=== PATIENT | male | born 1985 | race African-American/Black ===

== ENCOUNTER 2016-11-26 20:52 | Emergency (ER) | payer MEDICAID ==
[~2016-11-26] VITALS: Ht 185.4 cm; Wt 117.9 kg
[~2016-11-26 20:52] MED LIST: AMOX500C2 PO; CLIN300C3 PO; HYDR-757 PO; MPR22T TOP; NAPR-243 PO; ONDA4TAB11 PO; PRD20T PO; SULF-222 PO; SULF1TAB35 PO; SULF1TAB38 PO; TAMS0.4C98 PO; TRM50T PO
[2016-11-26] MEDS ORDERED: RX-CYCLOBENZAPRINE 10 MG (FLEXERIL) TAB PPK#3 PO STA (22:30)
[2016-11-26] MEDS ORDERED: RX-NAPROXEN (NAPROSYN) 250 MG TAB PPK#4 PO STA (22:30)
[2016-11-26] MEDS ORDERED: NAPR500T3 PO (22:33)
[2016-11-26] MEDS ORDERED: CYCL10TA9 PO (22:33)
--- NOTE | 2016-11-26 22:33 | ED Upper Extremity ---
General Chief Complaint: Upper Extremity Stated Complaint: R UPPER ARM PAIN Nursing Triage Note: pt reports his right arm was sore after work today. he put icy hot on it et took a nap. he woke up with worsening pain et numbness/tingling in fingers. 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 Nursing Sepsis Screen: No Definite Risk Source: patient History of Present Illness Time seen by provider: 21:50 Initial Comments PT ARRIVES VIA POV STATES HE HAS BEEN WORKING AT [employer] TH[employer]OUGH [employer] FOR THE LAST 3 WEEKS--WORKS 6 AM TO 4:30 PM. CONSTANT REPETITIVE MOVEMENTS OF FLEXION AND EXTENSION OF RIGHT ARM, LIFTS 10- 15 LBS AT A TIME AND NEVER LIFTS HIGHER THAN HIS HEAD. NO DIRECT TRAUMA THIS AM AT WORK, HE BEGAN TO HAVE PAIN IN RIGHT UPPER ARM WENT HOME AND WENT TO SLEEP, AND WHEN HE WOKE UP THIS EVENING HE HAD SEVERE PAIN IN RIGHT UPPER ARM--STARTED IN ELBOW AREA, THEN HIS WHOLE ARM STARTED HURTING AND NOW IT IS MORE AROUND RIGHT SHOULDER AND IN ELBOW C/O TINGLING TO FINGERTIPS, AND FINGERTIPS TO MIDDLE 2 FINGERS FEEL NUMB. HAS NOT TAKEN ANYTHING FOR PAIN, BUT DID PUT ICY HOT ON IT WITHOUT RELIEF PT IS RIGHT HANDED NO PRIOR PROBLEMS WITH RIGHT ARM. PCP: [facility] Allergies and Home Medications Allergies Coded Allergies: No Known Drug Allergies (Unverified , 01/05/11) Home Medications Cyclobenzaprine HCl 10 Mg Tablet, 10 MG PO Q8H, #15 Prescribed by: JAI WHITMAN on 11/26/16 2233 Hydrocodone/Acetaminophen 1 Each Tablet, 1 EACH PO Q6H PRN for PAIN, #14 Ref 0 Prescribed by: BLOSSOM PERRY on 07/26/16 1404 Naproxen 500 Mg Tablet, 500 MG PO BID, #20 Prescribed by: JAI WHITMAN on 11/26/16 2233 Ondansetron 4 Mg Tab.rapdis, 4 MG PO Q6H PRN for NAUSEA/VOMITING, #8 Ref 0 Prescribed by: BLOSSOM PERRY on 07/26/16 1436 Sulfamethoxazole/Trimethoprim 1 Each Tablet, 1 EACH PO BID, #10 Ref 0 Prescribed by: BLOSSOM PERRY on 07/26/16 1435 Tamsulosin HCl 0.4 Mg Cap, 0.4 MG PO DAILY, #14 Ref 0 Prescribed by: BLOSSOM PERRY on 07/26/16 1436 Constitutional: no symptoms reported Respiratory: no symptoms reported Cardiovascular: no symptoms reported Gastrointestinal: no symptoms reported Musculoskeletal: see HPI Skin: no symptoms reported Psychiatric/Neurological: See HPI Past Pksvfmo-Koyced-Ygelqf Hx Patient Social History Alcohol Use: Denies Use Recreational Drug Use: No Smoking Status: Never a Smoker Recent Foreign Travel: No Contact w/Someone Who Travel: No Recent Infectious Disease Expo: No Recent Hopitalizations: No Immunizations Up To Date Tetanus Booster (TDap): More than 5yrs Seasonal Allergies Seasonal Allergies: No Surgeries HX Surgeries: No Respiratory Hx Respiratory Disorders: No Cardiovascular Hx Cardiac Disorders: No Neurological Hx Neurological Disorders: No Reproductive System Hx Reproductive Disorders: No Genitourinary Hx Genitourinary Disorders: No Gastrointestinal Hx Gastrointestinal Disorders: No Musculoskeletal Hx Musculoskeletal Disorders: Yes Musculoskeletal Disorders: Scoliosis Endocrine Hx Endocrine Disorders: No HEENT HX ENT Disorders: No Cancer Hx Cancer: No Psychosocial Hx Psychiatric Problems: No Integumentary HX Skin/Integumentary Disorder: No Blood Transfusions Hx Blood Disorders: No Family Medical History Significant Family History: Heart Disease, Hypertension Physical Exam Vital Signs Vital Sign - Last 12Hours 11/26/16 21:18 Temp 98.2 Pulse 96 Resp 14 B/P (MAP) 146/79 Pulse Ox 96 Capillary Refill : Less Than 3 Seconds General Appearance: WD/WN, no apparent distress Neck: non-tender, full range of motion, supple, normal inspection Cardiovascular: normal peripheral pulses, regular rate, rhythm, no murmur Respiratory: chest non-tender, normal breath sounds, no respiratory distress, no accessory muscle use Back: normal inspection, no CVA tenderness, no vertebral tenderness Shoulder: No asymmetry, No bone tenderness, No deformity, No ecchymosis, limited ROM (DUE TO PAIN ), pain, soft tissue tenderness (TENDERNESS TO ANTERIOR ASPECT OF RIGHT SHOULDER/DELTOID AREA AND MID BICEPS AREA. ) Elbow/Forearm: Right, limited ROM (DUE TO PAIN ), soft tissue tenderness Wrist: Yes normal inspection Hand: normal inspection Neurologic/Tendon: normal sensation, normal motor functions, normal tendon functions Neurologic/Psychiatric: jet blade polisher II-XII nml as tested, no motor/sensory deficits, alert, normal mood/affect, oriented x 3 Skin: normal color, warm/dry, No rash Splinting and Joint Reduction : Arm Sling: [place] Progress/Results/Core Measures Results/Orders My Orders Orders - JAI WHITMAN DO Humerus, Right, 2 Views (11/26/16 21:53) Sling (11/26/16 22:30) Rx-Cyclobenzaprine Tablet (Rx-Flexeril T (11/26/16 22:30) Rx-Naproxen (Rx-Naprosyn) (11/26/16 22:30) Vital Signs/I&O Vital Sign - Last 12Hours 11/26/16 11/26/16 21:18 22:45 Temp 98.2 Pulse 96 0 Resp 14 0 B/P (MAP) 146/79 Pulse Ox 96 0 Blood Pressure Mean: 101 Diagnostic Imaging Comments XRAYS RIGHT HUMERUS--NO ACUTE PROCESS, PENDING RADIOLOGIST REVIEW Reviewed: Reviewed by Me Departure Impression Impression: Primary Impression: Muscle strain of right upper arm Additional Impression: OVERUSE INJURY OF RIGHT ARM Disposition: HOME, SELF-CARE Condition: Stable Departure-Patient Inst. Referrals: [facility] (PCP/Family) Primary Care Physician Patient Instructions: How to Use a Shoulder Sling, Muscle Strain (DC) Add. Discharge Instructions: ALTERNATE ICE AND HEAT TO SORE AREAS AT 20 MINUTE INTERVALS WEAR SLING AT ALL TIMES FOLLOW UP WITH OCCUPATIONAL HEALTH/ WORKMAN'[employer] COMP DR TOMORROW FOR FURTHER CARE All discharge instructions reviewed with patient and/or family. Voiced understanding. Scripts Cyclobenzaprine HCl (Cyclobenzaprine HCl) 10 Mg Tablet 10 MG PO Q8H, #15 TAB Prov: JAI WHITMAN DO 11/26/16 Naproxen (Naproxen) 500 Mg Tablet 500 MG PO BID, #20 TAB Prov: JAI WHITMAN DO 11/26/16 JAI WHITMAN DO Nov 26, 2016 22:33
[2016-11-26 22:45] VITALS: BP 0/0
--- NOTE | 2016-11-27 07:21 | Diagnostic Imaging Report ---
INDICATION: Pain FINDINGS: There is no fracture or dislocation. No opaque foreign body. IMPRESSION: Negative Dictated by: Dictated on workstation # [id number]
--- OUTSIDE RECORDS SUMMARY | 2016-12-21 05:20 | XMS REPORT | Continuity of Care Document ---
Author Author [facility] Address Unknown Phone Unavailable Allergies Active Description Code Type Severity Reaction Onset Reported/Identified Relationship to Patient Clinical Status Yes No Known Drug Allergies [id number] Drug Allergy Unknown N/ A 01/05/2011 Medications Problems Date Dx Coded Attending Type Code Diagnosis Diagnosed By 08/15/2009 599.0 URINARY TRACT INFECTION 08/15/2009 LEIGH TIM APRN 599.0 URINARY TRACT INFECTION 09/16/2012 786.59 ATYPICAL CHEST PAIN 09/16/2012 LEIGH TIM APRN 786.59 ATYPICAL CHEST PAIN 01/23/2013 YOSVANY ORDOÑEZ Ot 923.11 CONTUSION OF ELBOW 01/23/2013 YOSVANY ORDOÑEZ Ot 959.3 ELB/FOREARM/WRST INJ NOS 01/23/2013 YOSVANY ORDOÑEZ Ot E000.8 OTHER EXTERNAL CAUSE STATUS 01/23/2013 YOSVANY ORDOÑEZ Ot E007.3 ACTIVITIES INVOLVING BASEBALL 01/23/2013 YOSVANY ORDOÑEZ Ot E917.0 STRUCK IN SPORTS 02/05/2014 ZACK ROGERS, CIERA Jimenez Ot 401.9 02/05/2014 ZACK ROGERS, CIERA T Ot 682.6 02/05/2014 ZACK ROGERS, CIERA T Ot 916.5 02/05/2014 ZACK ROGERS, CIERA T Ot E906.4 02/07/2014 JAI WHITMAN DO Ot 682.6 10/04/2014 LEIGH TIM APRN 719.42 PAIN IN JOINT INVOLVING UPPER ARM 10/04/2014 LEIGH TIM APRN 780.4 DIZZINESS AND GIDDINESS 10/04/2014 LEIGH TIM APRN V70.0 ROUTINE GENERAL MEDICAL EXAMINATION AT A HEALTH CARE FACILITY 03/01/2015 NEHEMIAS ROGERS, SUMIT Trujillo Ot 785.1 PALPITATIONS 03/01/2015 SUMIT DEL CID MD Ot 786.50 CHEST PAIN NOS 03/01/2015 NEHEMIAS ROGERS, SUMIT Trujillo Ot V58.66 LONG-TERM (CURRENT) USE OF ASPIRIN 03/22/2015 JENNY GUZMANC, ALI FACP CCDS Ot 278.00 03/22/2015 JENNY GUZMANC, ALI FACP CCDS Ot 785.1 03/22/2015 JENNY ROGERS FACC, ALI FACP CCDS Ot 786.50 03/22/2015 JENNY GUZMANC, ALI FACP CCDS Ot 790.21 03/22/2015 JENNY ROGERS FACC, ALI FACP CCDS Ot 794.31 03/22/2015 JENNY ROGERS FACC, ALI FACP CCDS Ot 278.00 03/22/2015 JENNY GUZMANC, ALI FACP CCDS Ot 785.1 03/22/2015 JENNY ROGERS FACC, ALI FACP CCDS Ot 786.50 03/22/2015 JENNY GUZMANC, ALI FACP CCDS Ot 790.21 03/22/2015 JENNY GUZMAN, ALI FACP CCDS Ot 794.31 03/22/2015 [facility], [facility]I FACP CCDS Ot 278.00 03/22/2015 JENNY GUZMAN, ALI FACP CCDS Ot 785.1 03/22/2015 JENNY GUZMAN, ALI FACP CCDS Ot 786.50 03/22/2015 JENNY GUZMANC, ALI FACP CCDS Ot 790.21 03/22/2015 JENNY GUZMANC, ALI FACP CCDS Ot 794.31 03/29/2015 [employer] Ot 276.8 07/26/2016 JENNY ROGERS FACC, ALI FACP CCDS Ot 278.00 OBESITY, NOS 07/26/2016 JENNY GUZMANC, ALI FACP CCDS Ot 785.1 PALPITATIONS 07/26/2016 JENNY GUZMANC, ALI FACP CCDS Ot 786.50 CHEST PAIN NOS 07/26/2016 JENNY GUZMANC, ALI FACP CCDS Ot 790.21 IMPAIRED FASTING GLUCOSE 07/26/2016 JENNY ROGERS FACC, ALI FACP CCDS Ot 794.31 ABNORM ELECTROCARDIOGRAM 07/26/2016 JENNY GUZMANC, ALI FACP CCDS Ot 278.00 OBESITY, NOS 07/26/2016 JENNY ROGERS FACC, ALI FACP CCDS Ot 785.1 PALPITATIONS 07/26/2016 JENNY MD FACC, ALI FACP CCDS Ot 786.50 CHEST PAIN NOS 07/26/2016 JENNY MD FACC, ALI FACP CCDS Ot 790.21 IMPAIRED FASTING GLUCOSE 07/26/2016 JENNY MD FACC, ALI FACP CCDS Ot 794.31 ABNORM ELECTROCARDIOGRAM 07/26/2016 JENNY MD FACC, ALI FACP CCDS Ot 278.00 OBESITY, NOS 07/26/2016 JENNY MD FACC, ALI FACP CCDS Ot 785.1 PALPITATIONS 07/26/2016 JENNY MD FACC, ALI FACP CCDS Ot 786.50 CHEST PAIN NOS 07/26/2016 JENNY MD FACC, ALI FACP CCDS Ot 790.21 IMPAIRED FASTING GLUCOSE 07/26/2016 JENNY ROGERS FACC, ALI FACP CCDS Ot 794.31 ABNORM ELECTROCARDIOGRAM 07/26/2016 [employer] Ot 276.8 HYPOPOTASSEMIA 07/29/2016 BLOSSOM PERRY MD Ot N20.1 CALCULUS OF URETER 07/29/2016 BLOSSOM PERRY MD Ot R10.31 RIGHT LOWER QUADRANT PAIN 07/29/2016 BLOSSOM PERRY MD Ot R11.2 NAUSEA WITH VOMITING, UNSPECIFIED 07/29/2016 BLOSSOM PERRY MD Ot R19.7 DIARRHEA, UNSPECIFIED 07/29/2016 BLOSSOM PERRY MD Ot R50.9 FEVER, UNSPECIFIED 08/07/2016 BLOSSOM PERRY MD Ot N20.1 CALCULUS OF URETER 08/07/2016 BLOSSOM PERRY MD Ot R10.31 RIGHT LOWER QUADRANT PAIN 08/07/2016 BLOSSOM PERRY MD Ot R11.2 NAUSEA WITH VOMITING, UNSPECIFIED 08/07/2016 BLOSSOM PERRY MD Ot R19.7 DIARRHEA, UNSPECIFIED 08/07/2016 BLOSSOM PERRY MD Ot R50.9 FEVER, UNSPECIFIED 11/26/2016 JAI WHITMAN DO, Ot S46.911A STRAIN UNSP MUSC/FASC/TEND AT SHLDR/UP A 11/26/2016 JAI WHITMAN DO, Ot S49.91XA UNSP INJURY OF RIGHT SHOULDER AND UPPER 11/26/2016 JAI WHITMAN DO Ot X50.3XXA OVEREXERTION FROM REPETITIVE MOVEMENTS, 11/26/2016 JAI WHITMAN DO Ot Y92.[address] 11/26/2016 JAI WHITMAN DO Ot Y99.0 CIVILIAN ACTIVITY DONE FOR INCOME OR PAY 11/27/2016 JAI WHITMAN DO Ot S46.911A STRAIN UNSP MUSC/FASC/TEND AT SHLDR/UP A 11/27/2016 JAI WHITMAN DO Ot S49.91XA UNSP INJURY OF RIGHT SHOULDER AND UPPER 11/27/2016 JAI WHITMAN DO Ot X50.3XXA OVEREXERTION FROM REPETITIVE MOVEMENTS, 11/27/2016 JAI WHITMAN DO Ot Y92.[address] 11/27/2016 J CARLOS JAI LLOYD Ot Y99.0 CIVILIAN ACTIVITY DONE FOR INCOME OR PAY Procedures Code [place] [address] XRAY CHEST 2 VIEW 09/16/2012 91085 ROUTINE VENIPUNCTURE 09/16/2012 42322 CBC 09/16/2012 88600 CMP 09/16/2012 93674 MAGNESIUM 2012 [id number] GFR CALC (RESULT ONLY) 09/16/2012 16361 D-DIMER 2012 26741 ROUTINE VENIPUNCTURE 10/11/2014 55240 CBC 10/11/2014 9023904 GFR CALC (RESULT ONLY) 10/11/2014 55432 CMP 10/11/2014 39161 LIPID PANEL 10/11 32566 URIC ACID 2014 36437 TSH 10/11/2014 26070 TESTOSTERONE TOTAL MALES 10/11/2014 Results Test Result Range Complete blood count (CBC) with automated white blood cell (WBC) differential - 07/26/16 12:15 Blood leukocytes automated count (number/volume) 6.7 10*3/ uL 4.3-11.0 Blood erythrocytes automated count (number/volume) 4.97 10*6 /uL 4.35-5.85 Venous blood hemoglobin measurement (mass/volume) 15.0 g/dL 13.3-17.7 Blood hematocrit (volume fraction) 42 % 40-54 Automated erythrocyte mean corpuscular volume 85 [foz_us] 80-99 Automated erythrocyte mean corpuscular hemoglobin (mass per erythrocyte) 30 pg 25-34 Automated erythrocyte mean corpuscular hemoglobin concentration measurement ( mass/volume) 36 g/dL 32-36 Automated erythrocyte distribution width ratio 12.2 % 10.0-14.5 Automated blood platelet count (count/volume) 320 10*3/uL 130-400 Automated blood platelet mean volume measurement 10.7 [foz_ us] 7.4-10.4 Automated blood neutrophils/100 leukocytes 67 % 42-75 Automated blood lymphocytes/100 leukocytes 24 % 12-44 Blood monocytes/100 leukocytes 7 % 0-12 Automated blood eosinophils/100 leukocytes 3 % 0-10 Automated blood basophils/100 leukocytes 0 % 0-10 Blood neutrophils automated count (number/volume) 4.5 10*3 1.8-7.8 Blood lymphocytes automated count (number/volume) 1.6 10*3 1.0-4.0 Blood monocytes automated count (number/volume) 0.4 10*3 0.0-1.0 Automated eosinophil count 0.2 10*3/uL 0.0-0.3 Automated blood basophil count (count/volume) 0.0 10*3/uL 0.0-0.1 Comprehensive metabolic panel - 07/26/16 12:15 Serum or plasma sodium measurement (moles/volume) 142 mmol/ L 135-145 Serum or plasma potassium measurement (moles/volume) 3.7 mmol/L 3.6-5.0 Serum or plasma chloride measurement (moles/volume) 108 mmol /L 98-107 Carbon dioxide 22 mmol/L 21-32 Serum or plasma anion gap determination (moles/volume) 12 mmol/L 5-14 Serum or plasma urea nitrogen measurement (mass/volume) 10 mg/dL 7-18 Serum or plasma creatinine measurement (mass/volume) 0.95 mg /dL 0.60-1.30 Serum or plasma urea nitrogen/creatinine mass ratio 11 NRG Serum or plasma creatinine measurement with calculation of estimated glomerular filtration rate > NRG Serum or plasma glucose measurement (mass/volume) 126 mg/dL 70-105 Serum or plasma calcium measurement (mass/volume) 9.3 mg/dL 8.5-10.1 Serum or plasma total bilirubin measurement (mass/volume) 0.4 mg/dL 0.1-1.0 Serum or plasma alkaline phosphatase measurement (enzymatic activity/volume) 48 U/L 40-136 Serum or plasma aspartate aminotransferase measurement (enzymatic activity/ volume) 18 U/L 5-34 Serum or plasma alanine aminotransferase measurement (enzymatic activity/volume ) 28 U/L 0-55 Serum or plasma protein measurement (mass/volume) 6.6 g/dL 6.4-8.2 Serum or plasma albumin measurement (mass/volume) 4.3 g/dL 3.2-4.5 Serum or plasma amylase measurement (enzymatic activity/volume) - 07/26/16 12: 15 Serum or plasma amylase measurement (enzymatic activity/volume) 51 U/L 25-125 Complete urinalysis with reflex to culture - 07/26/16 12:30 Urine color determination YELLOW NRG Urine clarity determination CLEAR NRG Urine pH measurement by test strip 5 5- 9 Specific gravity of urine by test strip 1.025 1.016-1.022 Urine protein assay by test strip, semi-quantitative 1+ NEGATIVE Urine glucose detection by automated test strip NEGATIVE NEGATIVE Erythrocytes detection in urine sediment by light microscopy NEGATIVE NEGATIVE Urine ketones detection by automated test strip NEGATIVE NEGATIVE Urine nitrite detection by test strip NEGATIVE NEGATIVE Urine total bilirubin detection by test strip NEGATIVE NEGATIVE Urine urobilinogen measurement by automated test strip (mass/volume) NORMAL NORMAL Urine leukocyte esterase detection by dipstick NEGATIVE NEGATIVE Automated urine sediment erythrocyte count by microscopy (number/high power field) NONE NRG Automated urine sediment leukocyte count by microscopy (number/high power field ) NONE NRG Bacteria detection in urine sediment by light microscopy NEGATIVE NRG Squamous epithelial cells detection in urine sediment by light microscopy NONE NRG Crystals detection in urine sediment by light microscopy NONE NRG Casts detection in urine sediment by light microscopy NONE NRG Mucus detection in urine sediment by light microscopy SMALL NRG Complete urinalysis with reflex to culture NO NRG Encounters ACCT No. Visit Date/Time Discharge Status Pt. Type Provider Facility Loc./Unit Complaint [id number] 10/11/2014 07:59:00 10/11/2014 23: 59:59 CLS Outpatient LEIGH TIM APRN [id number] 09/16/2012 11:04:00 09/16/2012 23: 59:59 CLS Outpatient
--- OUTSIDE RECORDS SUMMARY | 2016-12-21 05:20 | XMS REPORT ---
Author Author LUIS REDDING Organization [facility] Address [address] [place] [address] Care Team Providers [employer] Department Head Name Role Phone LUIS REDDING Unavailable PROBLEMS Type Condition ICD9-CM Code TAA60-IV Code Onset Dates Condition Status SNOMED Code Problem Pain in joint, upper arm 719.42 Active 970631522 Problem Dizziness and giddiness 780.4 Active 004345356 Assessment Exposure to STD Z20.2 Jul, Active 155234850 Problem Routine general medical examination at health care facility V70.0 Active 805760145 Problem Chest pain, other 786.59 Active 05219845 ALLERGIES Substance Reaction Event Type Date Status N.K.D.A. Unknown Non Drug Allergy Jul, Unknown SOCIAL HISTORY No smoking Hx information available PLAN OF CARE VITAL SIGNS Height 72 in 2016-08-04 Weight 271.0 lbs 2016-08-04 Heart Rate 84 bpm 2016-08-04 Respiratory Rate 18 2016-08-04 BMI 36.75 kg/m2 2016-08-04 Blood pressure systolic 132 mmHg 2016-08-04 Blood pressure diastolic 86 mmHg 2016-08-04 MEDICATIONS Medication Instructions Dosage Frequency Start Date End Date Duration Status Metronidazole 500 MG Orally Twice a day 1 tablet 12h Jul, Jul, 07 days Active RESULTS Name Result Date Reference Range GC/CHLAM URINE (STATE) 2016-08-04 CHLAMYDIA GC PROCEDURES Procedure Date Ordered Related Diagnosis Body Site No Charge Aug 04, 2016 Office Visit, Est Pt., Level 3 Aug 04, 2016 IMMUNIZATIONS No Known Immunizations
== END 2016-11-26 22:45 | disposition home or self-care (01) ==
LOC: EDUNIT# 20:52 → ER 20:53
DX: S46.911A Strain of unspecified muscle, fascia and tendon at shoulder and upper arm level, right arm, initial encounter (principal); X50.3XXA Overexertion from repetitive movements, initial encounter; Y92.59 Other trade areas as the place of occurrence of the external cause; Y99.0 Civilian activity done for income or pay
CPT/HCPCS: 73060; 99283

== ENCOUNTER 2017-04-16 15:40 | Emergency (ER) | payer SELFPAY ==
[~2017-04-16] VITALS: Ht 185.4 cm; Wt 117.9 kg
[~2017-04-16 15:40] MED LIST changes: +CYCL10TA9 PO; +NAPR500T4 PO
--- NOTE | 2017-04-16 17:37 | ED Upper Extremity ---
General Chief Complaint: Upper Extremity Stated Complaint: LT ARM HAND/ARM NUMBNESS X2 HOURS Nursing Triage Note: Pt c/o pain to L upper arm. Pt reports pain gets worse w/ movement. Pt also reports feeling of numbness in L forearm and L hand. Pt denies any injury. Nursing Sepsis Screen: No Definite Risk Source: patient Exam Limitations: no limitations History of Present Illness Time seen by provider: 17:33 Initial Comments To ER with pain to the left bicep and tingling distally from there. He awakened with this 2 hours ago. He fell asleep on extended left arm. Onset: just prior to arrival Severity: moderate Pain/Injury Location: left arm Method of Injury: unknown Allergies and Home Medications Allergies Coded Allergies: No Known Drug Allergies (Unverified , 01/05/11) Home Medications Cyclobenzaprine HCl 10 Mg Tablet, 10 MG PO Q8H, #15 Prescribed by: JAI WHITMAN on 11/26/16 2233 Hydrocodone/Acetaminophen 1 Each Tablet, 1 EACH PO Q6H PRN for PAIN, #14 Ref 0 Prescribed by: BLOSSOM PERRY on 07/26/16 1404 Naproxen 500 Mg Tablet, 500 MG PO BID, #20 Prescribed by: JAI WHITMAN on 11/26/16 2233 Ondansetron 4 Mg Tab.rapdis, 4 MG PO Q6H PRN for NAUSEA/VOMITING, #8 Ref 0 Prescribed by: BLOSSOM PERRY on 07/26/16 1436 Sulfamethoxazole/Trimethoprim 1 Each Tablet, 1 EACH PO BID, #10 Ref 0 Prescribed by: BLOSSOM PERRY on 07/26/16 1435 Tamsulosin HCl 0.4 Mg Cap, 0.4 MG PO DAILY, #14 Ref 0 Prescribed by: BLOSSOM PERRY on 07/26/16 1436 Constitutional: see HPI EENTM: see HPI Respiratory: no symptoms reported Cardiovascular: no symptoms reported Genitourinary: no symptoms reported Musculoskeletal: see HPI Skin: no symptoms reported Psychiatric/Neurological: No Symptoms Reported Past Opmymzy-Efwxnq-Qhupwh Hx Patient Social History Recent Foreign Travel: No Contact w/Someone Who Travel: No Recent Infectious Disease Expo: No Recent Hopitalizations: No Immunizations Up To Date Tetanus Booster (TDap): More than 5yrs Seasonal Allergies Seasonal Allergies: No Surgeries HX Surgeries: No Respiratory Hx Respiratory Disorders: No Cardiovascular Hx Cardiac Disorders: No Neurological Hx Neurological Disorders: No Reproductive System Hx Reproductive Disorders: No Genitourinary Hx Genitourinary Disorders: No Gastrointestinal Hx Gastrointestinal Disorders: No Musculoskeletal Hx Musculoskeletal Disorders: Yes Musculoskeletal Disorders: Scoliosis Endocrine Hx Endocrine Disorders: No HEENT HX ENT Disorders: No Cancer Hx Cancer: No Psychosocial Hx Psychiatric Problems: No Integumentary HX Skin/Integumentary Disorder: No Blood Transfusions Hx Blood Disorders: No Family Medical History Significant Family History: Heart Disease, Hypertension Physical Exam Vital Signs Vital Sign - Last 12Hours 04/16/17 15:54 Temp 97.3 Pulse 79 Resp 18 B/P (MAP) 140/69 Pulse Ox 95 O2 Delivery Room Air Capillary Refill : Less Than 3 Seconds General Appearance: WD/WN, no apparent distress HEENT: PERRL/EOMI, normal ENT inspection Neck: non-tender, full range of motion Respiratory: no respiratory distress, no accessory muscle use Gastrointestinal: normal bowel sounds, non tender, soft Shoulder: normal inspection, non-tender Elbow/Forearm: normal inspection, Left, swelling (tenderness over the left bicep. 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 Reports tingling/numb sensation affecting all of his fingers) Hand: normal inspection, non-tender Neurologic/Psychiatric: alert, normal mood/affect, oriented x 3 Skin: normal color, warm/dry Progress/Results/Core Measures Results/Orders Vital Signs/I&O Vital Sign - Last 12Hours 04/16/17 15:54 Temp 97.3 Pulse 79 Resp 18 B/P (MAP) 140/69 Pulse Ox 95 O2 Delivery Room Air Blood Pressure Mean: 92 Departure Impression Impression: Primary Impression: Thursday night palsy Disposition: 01 HOME, SELF-CARE Condition: Stable Departure-Patient Inst. Decision time for Depature: 17:35 Referrals: NO,LOCAL PHYSICIAN (PCP/Family) Primary Care Physician Patient Instructions: NO INSTRUCTIONS GIVEN Add. Discharge Instructions: If pain persists follow up with your doctor for further testing. All discharge instructions reviewed with patient and/or family. Voiced understanding. Work/School Note: Work Release Form Date Seen in the Emergency Department: Apr 16, 2017 Return to Work: Apr 17, 2017 LIZ SRINIVASAN APRN Apr 16, 2017 17:37
[2017-04-16 17:40] VITALS: BP 140/69
== END 2017-04-16 17:56 | disposition home or self-care (01) ==
LOC: EDUNIT# 15:40 → ER 15:42
DX: G83.9 Paralytic syndrome, unspecified (principal); M41.20 Other idiopathic scoliosis, site unspecified; Z82.49 Family history of ischemic heart disease and other diseases of the circulatory system
CPT/HCPCS: 99281

== ENCOUNTER → 2017-08-19 | Outpatient (CLI) | payer OTHER ==
--- NOTE | 2017-08-19 10:30 | Diagnostic Imaging Report ---
PROCEDURE: CT chest, abdomen, and pelvis without contrast. TECHNIQUE: Multiple contiguous axial images were obtained through the chest, abdomen, and pelvis without the use of intravenous contrast. INDICATION: Fever. Back pain. FINDINGS: CT CHEST: The lungs demonstrate no significant consolidation or mass. No suspicious nodule is seen. The heart size is normal. No pericardial or pleural effusion. No mediastinal mass or lymphadenopathy. The thoracic aorta is normal in caliber. The osseous structures appear grossly unremarkable. CT ABDOMEN AND PELVIS: The liver, gallbladder, spleen, adrenal glands, and pancreas appear unremarkable. No hydronephrosis is seen in the kidneys. No urinary tract stone. The appendix is normal. No bowel obstruction. The abdominal aorta is normal in caliber. No periaortic significantly enlarged lymph nodes are seen. No significant free fluid or fluid collection is seen in the abdomen or pelvis. The SI joints demonstrate minimal degenerative changes and vacuum phenomenon. IMPRESSION: CT CHEST: Unremarkable exam. CT ABDOMEN/PELVIS: No acute process. Dictated by: Dictated on workstation # [id number]
== END ==
LOC: RAD 09:05
PROVIDERS: ATTEND Family Medicine
DX: R50.9 Fever, unspecified (principal); M54.9 Dorsalgia, unspecified
CPT/HCPCS: 71250; 74176

== ENCOUNTER → 2019-03-25 | Outpatient (CLI) | payer OTHER ==
[~2019-03-25] MED LIST changes: +HYDR-4226 PO; -HYDR-757 PO; +NAPR-915 PO; -NAPR500T4 PO
--- NOTE | 2019-03-25 16:13 | Diagnostic Imaging Report ---
INDICATION: Cough, shortness of air for approximately 2 months.. TECHNIQUE: Two view chest 3:59 PM CORRELATION STUDY: 03/01/2015 FINDINGS: The heart size, mediastinal configuration and pulmonary vasculature are within normal limits. The lungs are clear with no consolidating infiltrate. There is no significant pleural effusion or pneumothorax. Visualized osseous structures are unremarkable. IMPRESSION: 1. Stable chest. Dictated by: Dictated on workstation # [id number]
== END ==
LOC: RAD 15:44
PROVIDERS: ATTEND Nurse Practitioner Family
DX: R05 Cough (principal)
CPT/HCPCS: 71046

== ENCOUNTER 2019-11-30 05:57 | Observation (INO) | payer OTHER ==
[~2019-11-30] VITALS: Ht 182.9 cm; Wt 119.0 kg
[~2019-11-30 05:57] MED LIST changes: -TAMS0.4C98 PO; +TMSL.4C PO
[2019-11-30] MEDS ORDERED: KETOROLAC 30 MG/ML VIAL IVP STA (06:33)
[2019-11-30] MEDS ORDERED: ORPHENADRINE 60 MG/2 ML (NORFLEX) AMP IV STA (06:33)
[2019-11-30 06:45] LABS: BASOPHILS % (AUTO) 0 % (0-10); EOSINOPHILS # (AUTO) 0.2 10^3/uL (0.0-0.3); EOSINOPHILS % (AUTO) 2 % (0-10); HEMATOCRIT 44 % (40-54); HEMOGLOBIN 15.3 G/DL (13.3-17.7); LYMPHOCYTES # (AUTO) 1.6 X 10^3 (1.0-4.0); LYMPHOCYTES % (AUTO) 21 % (12-44); MEAN CORPUSCULAR HEMOGLOBIN 30 PG (25-34); MEAN CORPUSCULAR HGB CONC 35 G/DL (32-36); MEAN CORPUSCULAR VOLUME 86 FL (80-99); MEAN PLATELET VOLUME 11.1 FL (7.4-10.4); MONOCYTES # (AUTO) 0.6 X 10^3 (0.0-1.0); MONOCYTES % (AUTO) 8 % (0-12); NEUTROPHILS # (AUTO) 5.2 X 10^3 (1.8-7.8); NEUTROPHILS % (AUTO) 68 % (42-75); PLATELET COUNT 260 10^3/uL (130-400); RED CELL DISTRIBUTION WIDTH 12.6 % (10.0-14.5); WHITE BLOOD COUNT 7.6 10^3/uL (4.3-11.0)
--- NOTE | 2019-11-30 06:45 | ED General ---
General Chief Complaint: General Problems/Pain Stated Complaint: POSS PULLED MUSCLE ON RT SIDE Nursing Triage Note: C/O RIGHT SIDED PECTORIAL PAIN THAT RADIATES IN TO HIS BACK, PATIENT VERBALIES HE HAS A HISTORY OF SCOLIOSIS AND HAS HAD MUSCLE SPASMS IN THE PAST BUT THIS IS MORE PAINFUL THAN IT GRAHAM EVER BEEN BEFORE. PATIENT DENIES SHORTNESS OF BREATH, STATING IT JUST HURTS TO TAKE DEEP BREATH BECAUSE OF THE PAIN. Nursing Sepsis Screen: No Definite Risk Source of Information: Patient Exam Limitations: No Limitations History of Present Illness Date Seen by Provider: Nov 30, 2019 Time Seen by Provider: 06:18 Initial Comments Here with right sided anterior chest wall pain involving the pectoralis muscle and radiating to the shoulder and back. States the muscle is very tight. Hurts when he takes a breath or moves his arm. He has had similar strains and pains previously. States it similar to that but hurts worse. Drove himself here. 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 He doesn't remember specifically injuring this muscle but states it certainly hurt worse with movement. Took 3 extra strength Tylenol last night which did not help much. Later he took a hydrocodone and that helped reduce pain from a 9 to a 3 and he was able to sleep. Went to work this morning feeling okay but still tight and then as soon as he got to work and started hurting worse. Ultimately came here for evaluation. Denies breathing problems otherwise, nausea, vomiting, sweating or weakness. Denies cough, recent fever or chills or concerning travel history. Pain is described as aching and cramping to the right side and 9 out of 10 in intensity. Worse with breathing or movement and better with holding still. Timing/Duration: 12-24 Hours Severity: Moderate Associated Systoms: No Cough, No Diaphoresis, No Fever/Chills, No Nausea/Vomiting, No Shortness of Air, No Weakness Allergies and Home Medications Allergies Coded Allergies: No Known Drug Allergies (Unverified , 01/05/11) Home Medications Cyclobenzaprine HCl 10 Mg Tablet, 10 MG PO Q8H Prescribed by: JAI WHITMAN on 11/26/16 7255 Hydrocodone/Acetaminophen 1 Each Tablet, 1 EACH PO Q6H PRN for PAIN Prescribed by: BLOSSOM PERRY on 07/26/16 1404 Naproxen 500 Mg Tablet, 500 MG PO BID Prescribed by: JAI WHITMAN on 11/26/16 2233 Ondansetron 4 Mg Tab.rapdis, 4 MG PO Q6H PRN for NAUSEA/VOMITING Prescribed by: BLOSSOM PERRY on 07/26/16 1436 Sulfamethoxazole/Trimethoprim 1 Each Tablet, 1 EACH PO BID Prescribed by: BLOSSOM PERRY on 07/26/16 1435 Tamsulosin HCl 0.4 Mg Cap, 0.4 MG PO DAILY Prescribed by: BLOSSOM PERRY on 07/26/16 1436 Patient Home Medication List Home Medication List Reviewed: Yes Review of Systems Review of Systems Constitutional: see HPI; No chills, No fever EENTM: no symptoms reported Respiratory: see HPI; No cough Cardiovascular: No edema, No palpitations Gastrointestinal: no symptoms reported Genitourinary: no symptoms reported Musculoskeletal: see HPI, muscle pain, muscle stiffness, muscle cramps; No muscle weakness, No neck pain Skin: no symptoms reported Psychiatric/Neurological: No Symptoms Reported All Other Systems Reviewed Negative Unless Noted: Yes Past [place]-Spznii-Wbqijr Hx Past Med/Social Hx: Reviewed Nursing Past Med/Soc Hx Patient Social History Alcohol Use: Occasionally Uses Recreational Drug Use: No Recent Foreign Travel: No Contact w/Someone Who Travel: No Recent Infectious Disease Expo: No Recent Hopitalizations: No Physical Abuse: No Sexual Abuse: No Mistreated: No Fear: No Immunizations Up To Date Tetanus Booster (TDap): More than 5yrs Seasonal Allergies Seasonal Allergies: No Past Medical History Surgeries: No Respiratory: No Cardiac: No Neurological: No Reproductive Disorders: No Genitourinary: No Gastrointestinal: No Musculoskeletal: Yes Scoliosis Endocrine: No HEENT: No Cancer: No Psychosocial: No Integumentary: No Blood Disorders: No Family Medical History Reviewed Nursing Family Hx Heart Disease, Hypertension Physical Exam Vital Signs Vital Signs - First Documented 11/30/19 06:10 Temp 36.8 Pulse 98 Resp 18 B/P (MAP) 126/85 (99) Pulse Ox 97 Capillary Refill : Less Than 3 Seconds Height, Weight, BMI Height: 6'1.00" Weight: 260lbs. oz. 117.415802yh; 36.00 BMI Method:Stated General Appearance: WD/WN, Mild Distress HEENT: PERRL/EOMI, Pharynx Normal Neck: Non Tender, Supple Respiratory: Lungs Clear, Normal Breath Sounds Cardiovascular: Regular Rate, Rhythm, No Murmur Gastrointestinal: Non Tender, Soft Extremity: No Calf Tenderness, No Pedal Edema, Other (right pectoralis muscle spasm noted. Tender to palpation and reproducible pain.) Neurologic/Psychiatric: Alert, Oriented x3 Skin: Normal Color, Warm/Dry Progress/Results/Core Measures Suspected Sepsis Recent Fever Within 48 Hours: No Infection Criteria Present: None New/Unexplained Altered Menta: No Sepsis Screen: No Definite Risk SIRS Temperature: Pulse: 98 Respiratory Rate: 18 Laboratory Tests 11/30/19 06:20: White Blood Count 7.6 Blood Pressure 126 /85 Mean: 99 Laboratory Tests 11/30/19 06:20: Creatinine 1.06, Platelet Count 260, Total Bilirubin 0.5 Results/Orders Lab Results Laboratory Tests Test 11/30/19 06:20 Range/Units White Blood Count 7.6 4.3-11.0 10^3/uL Red Blood Count 5.10 4.35-5.85 10^6/uL Hemoglobin 15.3 13.3-17.7 G/DL Hematocrit 44 40-54 % Mean Corpuscular Volume 86 80-99 FL Mean Corpuscular Hemoglobin 30 25-34 PG Mean Corpuscular Hemoglobin Concent 35 32-36 G/DL Red Cell Distribution Width 12.6 10.0-14.5 % Platelet Count 260 130-400 10^3/uL Mean Platelet Volume 11.1 H 7.4-10.4 FL Neutrophils (%) (Auto) 68 42-75 % Lymphocytes (%) (Auto) 21 12-44 % Monocytes (%) (Auto) 8 0-12 % Eosinophils (%) (Auto) 2 0-10 % Basophils (%) (Auto) 0 0-10 % Neutrophils # (Auto) 5.2 1.8-7.8 X 10^3 Lymphocytes # (Auto) 1.6 1.0-4.0 X 10^3 Monocytes # (Auto) 0.6 0.0-1.0 X 10^3 Eosinophils # (Auto) 0.2 0.0-0.3 10^3/uL Basophils # (Auto) 0.0 0.0-0.1 10^3/uL Sodium Level 136 135-145 MMOL/L Potassium Level 3.9 3.6-5.0 MMOL/L Chloride Level 101 98-107 MMOL/L Carbon Dioxide Level 18 L 21-32 MMOL/L Anion Gap 17 H 5-14 MMOL/L Blood Urea Nitrogen 10 7-18 MG/DL Creatinine 1.06 0.60-1.30 MG/DL Estimat Glomerular Filtration Rate > 60 BUN/Creatinine Ratio 9 Glucose Level 385 H 70-105 MG/DL Calcium Level 9.6 8.5-10.1 MG/DL Corrected Calcium 9.2 8.5-10.1 MG/DL Total Bilirubin 0.5 0.1-1.0 MG/DL Aspartate Amino Transf (AST/SGOT) 17 5-34 U/L Alanine Aminotransferase (ALT/SGPT) 33 0-55 U/L Alkaline Phosphatase 73 40-136 U/L Troponin I 0.216 H <0.028 NG/ML Total Protein 7.8 6.4-8.2 GM/DL Albumin 4.5 3.2-4.5 GM/DL My Orders Orders - SUMIT DEL CID MD Ekg Tracing (11/30/19 06:13) Cbc With Automated Diff (11/30/19 06:33) Comprehensive Metabolic Panel (11/30/19 06:33) Troponin I (11/30/19 06:33) Ketorolac Injection (Toradol Injection) (11/30/19 06:33) Orphenadrine Injection (Norflex Injectio (11/30/19 06:33) Magnesium (11/30/19 07:13) Chest 1 View, Ap/Pa Only (11/30/19 07:13) Myoglobin Serum (11/30/19 07:13) Protime With Inr (11/30/19 07:13) Partial Thromboplastin Time (11/30/19 07:13) Monitor-Rhythm Ecg Trace Only (11/30/19 07:13) Lipid Panel (12/01/19 06:00) Troponin I (11/30/19 07:13) Aspirin Chewable Tablet (Baby Aspirin Ch (11/30/19 07:15) Ed Iv/Invasive Line Start (11/30/19 07:32) Ns Iv 1000 Ml (Sodium Chloride 0.9%) (11/30/19 07:32) Hemoglobin A1c (11/30/19 07:38) Medications Given in ED Current Medications Medications Dose Ordered Sig/Pati Route Start Time Stop Time Status Last Admin Dose Admin Aspirin 324 mg ONCE ONCE PO 11/30/19 07:15 11/30/19 07:16 DC 11/30/19 07:24 324 MG Sodium Chloride 1,000 ml @ 0 mls/hr Q0M ONCE IV 11/30/19 07:32 11/30/19 07:33 DC 11/30/19 07:41 1,000 MLS/HR Vital Signs/I&O 11/30/19 06:10 Temp 36.8 Pulse 98 Resp 18 B/P (MAP) 126/85 (99) Pulse Ox 97 Capillary Refill : Less Than 3 Seconds Blood Pressure Mean: 99 Progress Note : Progress Note Seen and evaluated. EKG done. IV and labs ordered to evaluate for electrolyte disturbance as he has had similar issues in the past. We will check troponin. Toradol 30 mg IV and Norflex 60 mg IV given. This appears to be related to pectoralis muscle spasm/pain. He has had similar past and the pain is reproducible. Monitor patient. 0733: Patient had elevated troponin. Also has elevated blood sugar. Does have family history of sudden cardiac with his mother at age of 59. Apparently Heber bearden runs in the family and he has had Holter monitor in the past without any significant diagnosis. He does admit to palpitations overnight now. He did not know that his blood sugar was high and he's never been diagnosed with diabetes. Patient was given aspirin 324 milligrams by mouth. Chest x-ray ordered as well as completion of chest pain order set. I did discuss the case with Dr. Rogers and he accepts patient in consult. Request that the patient remain nothing by mouth. I did discuss the case with Dr. Peres and he accepts patient for admission, inpatient status. I have added a hemoglobin A1c for him. Normal saline 1 L bolus ordered and we will continue that 125 an hour. All findings and concerns were discussed with the patient and he agrees with plan. ECG Initial ECG Impression Date: Nov 30, 2019 Initial ECG Impression Time: 16:18 Initial ECG Rate: 92 Initial ECG Rhythm: Normal Sinus Comment Sinus rhythm with left axis deviation and a period question LVH. No evidence of ST elevation VA. Borderline ST elevation in anterior leads similar to previous of 01 March 2015. Interpreted by me. Diagnostic Imaging Diagonstic Imaging: Xray Plain Films/CT/US/NM/MRI: chest Comments NAME: DEEPA ZHENG [facility] REC#: [id number] PT STATUS: REG ER : 1985 PHYSICIAN: SUMIT DEL CID MD ADMIT DATE: 11/30/19/ER Signed Date of Exam:11/30/19 CHEST 1 VIEW, AP/PA ONLY Indication: Hyperglycemia AP image of the chest is obtained with comparison made study of 03/25/2019. FINDINGS: Heart size and pulmonary vascularity are within normal limits, and the lungs are clear, bilaterally. IMPRESSION: Unremarkable chest. Dictated by: Dictated on workstation # [id number] Dict: 11/30/19 0743 Trans: 11/30/1944 [id number] Interpreted by: DO FALCON MD Electronically signed by: DO FALCON MD 11/30/19 0744 Departure Communication (Admissions) Time/Spoke to Admitting Phy: 07:33 Time/Spoke to Consulting Phy: 07:26 Impression Primary Impression: Chest pain Qualified Codes: R07.9 - Chest pain, unspecified Additional Impressions: Elevated troponin Acute hyperglycemia Disposition: ADMITTED INPATIENT Condition: Stable Admissions Decision to Admit Reason: Admit from ER (General) Decision to Admit/Date: Nov 30, 2019 Time/Decision to Admit Time: 07:26 Departure-Patient Inst. Referrals: NO,LOCAL PHYSICIAN (PCP/Family) Primary Care Physician SUMIT DEL CID MD Nov 30, 2019 06:45
[2019-11-30 07:05] LABS: ALANINE AMINOTRANSFERASE 33 U/L (0-55); ALBUMIN 4.5 GM/DL (3.2-4.5); ALKALINE PHOSPHATASE 73 U/L (40-136); BILIRUBIN,TOTAL 0.5 MG/DL (0.1-1.0); BUN/CREATININE RATIO 9; CALCIUM 9.6 MG/DL (8.5-10.1); CARBON DIOXIDE 18 MMOL/L (21-32); CHLORIDE 101 MMOL/L (98-107); CREATININE SERUM 1.06 MG/DL (0.60-1.30); GFR ESTIMATED > 60; GLUCOSE 385 MG/DL (70-105); POTASSIUM 3.9 MMOL/L (3.6-5.0); SODIUM 136 MMOL/L (135-145); TOTAL PROTEIN 7.8 GM/DL (6.4-8.2)
[2019-11-30] MEDS ORDERED: ASPIRIN 81 MG CHEW (CHILDREN'S ASA) PO ONE (07:15)
[2019-11-30] MEDS ORDERED: NS IV 1000 ML 1,000 ML IV ONE (07:32)
--- NOTE | 2019-11-30 07:46 | Diagnostic Imaging Report ---
Indication: Hyperglycemia AP image of the chest is obtained with comparison made study of 03/25/2019. FINDINGS: Heart size and pulmonary vascularity are within normal limits, and the lungs are clear, bilaterally. IMPRESSION: Unremarkable chest. Dictated by: Dictated on workstation # [id number]
--- NOTE | 2019-11-30 08:00 | NUR ---
DEEPA ZHENG Babatunde admitted to room 419-1, with an admitting diagnosis of chest pain, on 11/30/19 from ER via wheel chair , accompanied by staff .DEEPA ZHENG introduced to surroundings, call light, bed controls, phone, TV, temperature control, lights, meal times, smoking policy, visitor policy, side rail policy, bathrooms and showers. Patient Rights given to patient in the handbook. DEEPA ZHENG verbalizes understanding that [facility] is not responsible for the loss or damage to any personal effects or valuables that are kept in the patients posession during their hospitalization. The following Patient Care Plans and discharge were discussed with the patient . DEEPA ZHENG verbalizes understanding of Interdisciplinary Patient Education. Patient was informed about the Rapid Response Team and its purpose.
[2019-11-30 08:11] LABS: INR 0.9 (0.8-1.4); PROTHROMBIN TIME PATIENT 12.8 SEC (12.2-14.7)
[2019-11-30 08:15] LABS: MAGNESIUM 1.9 MG/DL (1.6-2.4)
[2019-11-30 08:26] VITALS: BP 141/87
[2019-11-30] MEDS ORDERED: ONDANSETRON 4 MG/2 ML (SDV) Z0FRAN IVP PRN (08:45)
[2019-11-30] MEDS ORDERED: morphine INJ 4 MG/ML 1 ML (VIAL/SYRINGE) IV PRN (08:45)
[2019-11-30] MEDS ORDERED: NITROGLYCERIN 0.4 MG SL TABS BTL 25'S SL PRN (08:45)
--- NOTE | 2019-11-30 10:58 | History & Physical-Hospitalist ---
History of Present Illness HPI/Chief Complaint Ap Shaw is a 34-year-old male with past medical history of gout who presented with chest pain. He reports having right-sided chest pain with radiation to his back. He reports that he is also had radiation to his neck and face on the right. He denies any associated nausea or vomiting. He denies any diaphoresis. He denies any shortness of breath. He denies any cough. He denies any fevers or chills. He reports having a sternum injury in the past. He reports a family history of coronary artery disease. He is not currently taking any medications daily. Source: patient Exam Limitations: no limitations Date Seen 11/30/19 Time Seen by a Provider: 08:25 Attending Physician Katt Arias MD PCP No,Local Physician Referring Physician Date of Admission Nov 30, 2019 at 07:53 Home Medications & Allergies Home Medications Reviewed patient Home Medication Reconciliation performed by pharmacy medication reconciliations agriculture technician and/or nursing. Patients Allergies have been reviewed. Allergies Allergies Coded Allergies No Known Drug Allergies (Unverified01/05/11) Past Vafvhai-Mbtmhr-Zoycha Hx Past Med/Social Hx: Reviewed Nursing Past Med/Soc Hx Patient Social History Alcohol Use: Occasionally Uses Recreational Drug Use: No Physical Abuse Screen: No Sexual Abuse: No Recent Foreign Travel: No Contact w/other who traveled: No Recent Hopitalizations: No Recent Infectious Disease Expo: No Immunizations Up To Date Tetanus Booster (TDap): More than 5yrs Seasonal Allergies Seasonal Allergies: No Past Medical History Reproductive: No Musculoskeletal: Scoliosis History of Blood Disorders: No Family History Reviewed Nursing Family Hx Heart Disease, Hypertension Review of Systems Constitutional: dizziness Respiratory: no symptoms reported Cardiovascular: chest pain Gastrointestinal: no symptoms reported Genitourinary: no symptoms reported Musculoskeletal: muscle pain Skin: no symptoms reported Psychiatric/Neurological: No Symptoms Reported Physical Exam Physical Exam Vital Signs Vital Signs - First Documented 11/30/19 11/30/19 06:10 08:01 Temp 36.8 Pulse 98 Resp 18 B/P (MAP) 126/85 (99) Pulse Ox 97 O2 Delivery Room Air Capillary Refill : Less Than 3 Seconds Height, Weight, BMI Height: 6'1.00" Weight: 260lbs. oz. 117.195969cj; 35.57 BMI Method:Stated General Appearance: No Apparent Distress, Obese HEENT: PERRL/EOMI, Pharynx Normal Neck: Normal Inspection, Supple Respiratory: Lungs Clear, Normal Breath Sounds, No Respiratory Distress, Other (Right-sided chest wall tenderness) Cardiovascular: Regular Rate, Rhythm, No Edema, No Murmur Gastrointestinal: Normal Bowel Sounds, Non Tender, Soft Extremity: Normal Inspection, Non Tender, No Pedal Edema Neurologic/Psychiatric: Alert, Oriented x3, No Motor/Sensory Deficits, Normal Mood/Affect Skin: Normal Color, Warm/Dry Results Results/Procedures Labs Laboratory Tests 11/30/19 06:20 Patient resulted labs reviewed. Imaging: Reviewed Imaging Report Assessment/Plan Admission Diagnosis NSTEMI Admission Status: Inpatient Order (span 2 midnights) Reason for Inpatient Admission: NSTEMI requiring further evaluation and treatment Assessment and Plan NSTEMI Troponin elevated at 0.21 Continue to trend Given aspirin 324 mg, continue 81 mg daily Add on lipid panel Cardiology consulted, appreciate assistance Monitor on telemetry Nothing by mouth for possible procedure Type 2 diabetes mellitus with hyperglycemia Blood sugar greater than 300 on arrival Check A1c Sliding scale insulin Diabetes education DVT prophylaxis: Lovenox Diagnosis/Problems Diagnosis/Problems (1) NSTEMI (non-ST elevation myocardial infarction) Status: Acute (2) T2DM (type 2 diabetes mellitus) Status: Acute Qualifiers: Diabetes mellitus continuous churn buttermaker insulin use: without continuous churn buttermaker use Diabetes m [place]ula complication status: with hyperglycemia Qualified Codes: E11.65 - Type 2 diabetes mellitus with hyperglycemia Clinical Quality Measures DVT/VTE Risk/Contraindication: RFS Level Per Nursing on Admit: 1=Low/No VTE PPX KATT ARIAS MD Nov 30, 2019 10:57
[2019-11-30] MEDS ORDERED: ONDANSETRON 4 MG/2 ML (SDV) Z0FRAN IV PRN (11:00)
[2019-11-30] MEDS ORDERED: MELATONIN 3 MG TABLET PO PRN (11:00)
[2019-11-30] MEDS ORDERED: polyethylene glycoL POWDER 17 GM (MIRALAX) PACK PO PRN (11:00)
[2019-11-30] MEDS ORDERED: ONDANSETRON 4 MG (ZOFRAN) ORAL DISSOLVE TAB PO PRN (11:00)
[2019-11-30] MEDS ORDERED: diphenhydrAMINE 25 MG TAB (BENADRYL) PO PRN (11:00)
[2019-11-30] MEDS ORDERED: BISACODYL 10 MG SUPP (DULCOLAX) PR PRN (11:00)
[2019-11-30] MEDS ORDERED: inSUlin ASPART (NovoLOG) 1 UNIT/0.01 ML (CHARGE PER UNIT) SC SCH (11:00)
[2019-11-30] MEDS ORDERED: ACETAMINOPHEN 325 MG TABLET PO PRN (11:00)
--- NOTE | 2019-11-30 11:31 | NUR ---
PT TO STRESS ECHO VIA WC
--- NOTE | 2019-11-30 11:47 | Consultation-Cardiology ---
HPI-Cardiology Cardiology Consultation Date of Consultation 11/30/19 Date of Admission Time Seen by Provider: 08:25 Indication: Chest pain HPI Patient is a 34 y/o male with no significant PMH. Presented to the ER with complaints of right sided chest pain. Reports chest pain started approx 2 days ago. Occasionally worse with deep inspiration. Denies any dyspnea, dizziness, lightheadedness or syncope. Reports episode of palpitation 2 nights ago, lasting for several minutes, then resolving on own. Currently is pain free. Patient had mildly elevated troponin in ER. Repeat troponin negative. No other complaints at this time. 34 years old gentleman with family history of palpitation, mother suddenly at age 59. Started to have chest pain about 2 days ago waxing and waning right side, mildly rapid inducible. Came into the emergency room and noted to have elevation in his troponin level. Had nondiagnostic EKG changes which has been present on his previous EKG about 5 years ago. On my evaluation was feeling better, reporting improvement in his chest pain but it is still somewhat reproducible type palpating his right upper pectoral area Home Medications & Allergies Allergies: Coded Allergies: No Known Drug Allergies (Unverified , 01/05/11) Home Medication List Reviewed: Yes Medication list reviewed AUL-Ivkxyw-Nvdpbu Hx Patient Social History Employed/Student: employed Alcohol Use: Occasionally Uses Recreational Drug Use: No Recent Foreign Travel: No Recent Infectious Disease Expo: No Recent Hopitalizations: No Physical Abuse Screen: No Sexual Abuse: No Immunizations Up To Date Tetanus Booster (TDap): More than 5yrs Past Medical History gout Family Medical History Significant Family History: Heart Disease, CAD Over 55 Years Old, Hypertension Family Medical Hx Mother at 59 Brother has history of palpitations Review of Systems-General Review of Systems Constitutional: no symptoms reported, see HPI; No dizziness, No malaise, No weakness EENTM: see HPI, no symptoms reported; No blurred vision, No double vision, No vision loss Respiratory: no symptoms reported, see HPI; No cough, No dyspnea on exertion, No orthopnea, No short of breath Cardiovascular: see HPI, chest pain; No edema, No Hx of Intervention; palpitations; No syncope, No vascular heart diseas Gastrointestinal: no symptoms reported Genitourinary: no symptoms reported Musculoskeletal: muscle pain Skin: no symptoms reported Psychiatric/Neurological: No Symptoms Reported All Other Systems Reviewed Negative Unless Noted: Yes Reviewed Test Results Reviewed Test Results Lab Laboratory Tests 11/30/19 06:10: Prothrombin Time 12.8, INR Comment 0.9, Activated Partial Thromboplast Time 29, Magnesium Level 1.9, Myoglobin 23.2 11/30/19 06:20: White Blood Count 7.6, Red Blood Count 5.10, Hemoglobin 15.3, Hematocrit 44, Mean Corpuscular Volume 86, Mean Corpuscular Hemoglobin 30, Mean Corpuscular Hemoglobin Concent 35, Red Cell Distribution Width 12.6, Platelet Count 260, Mean Platelet Volume 11.1H, Neutrophils (%) (Auto) 68, Lymphocytes (%) (Auto) 21, Monocytes (%) (Auto) 8, Eosinophils (%) (Auto) 2, Basophils (%) (Auto) 0, Neutrophils # (Auto) 5.2, Lymphocytes # (Auto) 1.6, Monocytes # (Auto) 0.6, Eosinophils # (Auto) 0.2, Basophils # (Auto) 0.0, Erythrocyte Sedimentation Rate 24H, Sodium Level 136, Potassium Level 3.9, Chloride Level 101, Carbon Dioxide Level 18L, Anion Gap 17H, Blood Urea Nitrogen 10, Creatinine 1.06, Estimat Glomerular Filtration Rate > 60, BUN/Creatinine Ratio 9, Glucose Level 385H, Calcium Level 9.6, Corrected Calcium 9.2, Total Bilirubin 0.5, Aspartate Amino Transf (AST/SGOT) 17, Alanine Aminotransferase (ALT/SGPT) 33, Alkaline Phosphatase 73, Troponin I 0.216H, Total Protein 7.8, Albumin 4.5 11/30/19 09:13: Myoglobin 31.0, Troponin I < 0.028 ECG Impression ECG Initial ECG Rhythm: Normal Sinus Physical Exam Physical Exam Vital Signs Vital Signs - First Documented 11/30/19 11/30/19 06:10 08:01 Temp 36.8 Pulse 98 Resp 18 B/P (MAP) 126/85 (99) Pulse Ox 97 O2 Delivery Room Air Capillary Refill : Less Than 3 Seconds Height, Weight, BMI Height: 6'1.00" Weight: 260lbs. oz. 117.667831zp; 35.57 BMI Method:Stated General Appearance: No Apparent Distress, WD/WN, Obese HEENT: PERRL/EOMI, Pharynx Normal Neck: Normal Inspection, Supple Respiratory: Lungs Clear, Normal Breath Sounds, No Respiratory Distress, Other (Right-sided chest wall tenderness) Cardiovascular: Regular Rate, Rhythm, No Edema, No Murmur Gastrointestinal: Normal Bowel Sounds, Non Tender, Soft Extremity: Normal Inspection, Non Tender, No Pedal Edema Neurologic/Psychiatric: Alert, Oriented x3, No Motor/Sensory Deficits, Normal Mood/Affect Skin: Normal Color, Warm/Dry A/P-Cardiology Admission Diagnosis Chest pain Elevated troponin DM Obesity Assessment/Plan Chest pain, nonspecific etiology, atypical in presentation with right sided CP reproducible with deep inspiration and movement. EKG revealed no acute ST changes. Initial troponin mildly elevated, repeat troponin negative. Currently chest pain free. I will evaluate 2d Echo, stress echo. On my evaluation he was having some reproducible right-sided chest pain, EKG was showing nondiagnostic changes without any change from his baseline. His first set of troponin was elevated, I repeated troponin and it was negative which make the first set as false-positive troponin. Echocardiogram was normal, I proceeded with exercise stress test, patient was able to exercise for 7 minutes on Petr protocol with no EKG changes, echocardiographic images were normal. Okay for discharge from cardiology standpoint. Discussed the management plan with Dr. Peres Mildly elevated troponin, workup as discussed above. Probably false-positive troponin elevation DM- initial blood glucose over 300 on arrival. Management per primary care, discussed with Dr. Peres, he will assume care of his diabetes Hypertension, continue to monitor blood pressure but I recommend starting KULDIP inhibitor as an outpatient Obesity Family hx CAD >55 Thank you for allowing us to participate in the management of Mr. Shaw. This is Donna Conroy PA-C, as a scribe for Dr. Rogers. This is Dr. Rogers, I have seen and evaluated the patient with Donna, perform physical examination and interview the patient, agree with the current scribed note, made few modifications using Italic font. On examination lungs were clear to auscultation, heart is regular, no click or rub or extra sounds were noted, lungs were clear to auscultation bilaterally, there is reproducible mild discomfort on the right upper side of his chest. No edema was noted Clinical Quality Measures DVT/VTE Risk/Contraindication: RFS Level Per Nursing on Admit: 1=Low/No VTE PPX DONNA BELCHER Nov 30, 2019 11:46 NICK ROGERS MD Nov 30, 2019 12:17
[2019-11-30 12:00] VITALS: BP 154/84
[2019-11-30] MEDS ORDERED: METF-399 PO (12:21)
[2019-11-30] MEDS ORDERED: METF-397 PO (12:21)
--- NOTE | 2019-11-30 13:01 | NUR ---
PT GIVEN DC AND DM EDUCATION PAPERWORK. MARY CONTACTED AND WILL CALL PT'S ROOM PRIOR TO DC AND REENFORCE DM EDUCATION. PT REFERRED TO [facility] FOR FOLLOW UP AND INSTRUCTED TO CALL WHEN HE GETS HOME. WILL CONTINUE WITH DC AFTER DM EDUCATION IS COMPLETE.
[2019-11-30 13:45] VITALS: BP 154/84
--- NOTE | 2019-11-30 14:04 | NUR ---
DEEPA ZHENG demonstrates understanding of discharge instructions and accurately returns instructions upon questioning. Copy of Post-Discharge Instructions and Medication Discharge Instructions given to . DEEPA ZHENG is able to manage continuing needs after discharge. Patients belongings returned to PT. Skin dry and intact; no breakdown noted. Patient discharged from [facility] on 11/30/19 at 1345. DEEPA ZHENG left floor AMBULATING, accompanied by RN.
[2019-12-01] MEDS ORDERED: ASPIRIN E.C. 81 MG (ECOTRIN) TAB PO SCH (09:00)
--- NOTE | 2019-12-01 09:40 | Discharge Summary ---
Discharge Summary Hospital Course Was the Problem List Reviewed?: Yes Problems/Dx: (1) Musculoskeletal chest pain Status: Acute (2) T2DM (type 2 diabetes mellitus) Status: Acute Qualifiers: Qualified Codes: E11.65 - Type 2 diabetes mellitus with hyperglycemia Hospital Course Date of Admission: Nov 30, 2019 at 07:53 Admission Diagnosis : Chest pain Family Physician/Provider: Dimple,Local Physician Date of Discharge: 12/01/19 Discharge Diagnosis: Musculoskeletal chest pain Hospital Course: Arthur Shaw is a 34-year-old male who presented with chest pain. His initial troponin was elevated, but a repeat test was normal. He underwent an exercise stress test which showed no inducible ischemia. He also underwent an echocardiogram which was normal. His symptoms were consistent with musculoskeletal chest pain. He was also found to have new onset type II diabetes mellitus. He was started on metformin. He was discharged home in stable condition. He should establish care with a primary care physician. Labs and Pending Lab Test: Laboratory Tests 11/30/19 12:05: Glucometer 215H 11/30/19 13:25: Troponin I < 0.028 Home Meds Active Metformin HCl 1,000 Mg Tablet 1,000 Mg PO BID 90 Days Take 500 mg daily for one week, then 1000 mg daily for one week, then 1000 mg twice daily. Metformin HCl 500 Mg Tablet 500 Mg PO DAILY 7 Days Take 500 mg daily for one week, then 1000 mg daily for one week, then 1000 mg twice daily. Assessment/Pt Instructions Take medications as prescribed. Establish with a primary care physician. Discharge Planning: <30 minutes discharge planning Discharge Instructions Discharge Diet: No Restrictions Activity as Tolerated: Yes Pneumonia Vaccine Order Indica: Yes Consultations Cardiology Discharge Physical Examination Vital Signs Vital Signs Date Time Temp Pulse Resp B/P (MAP) Pulse Ox O2 Delivery O2 Flow Rate FiO2 11/30/19 13:45 37.0 81 20 154/84 95 Room Air General Appearance: No Apparent Distress, WD/WN Respiratory: Lungs Clear, Normal Breath Sounds, No Respiratory Distress Cardiovascular: Regular Rate, Rhythm, No Edema, No Murmur, Other (Chest wall tenderness, right sided) Gastrointestinal: Normal Bowel Sounds, Non Tender, Soft Extremity: Normal Inspection, Non Tender, No Pedal Edema Skin: Normal Color, Warm/Dry Neurologic/Psychiatric: Alert, Oriented x3, No Motor/Sensory Deficits, Normal Mood/Affect Allergies: Coded Allergies: No Known Drug Allergies (Unverified , 5/8/11) Discharge Summary Date of Admission Nov 30, 2019 at 07:53 Date of Discharge Nov 30, 2019 at 13:45 Discharge Date: Nov 30, 2019 Discharge Time: 13:45 Admission Diagnosis Chest pain Consults/Procedures Consulations Cardiology Procedures Exercise stress test Discharge Diagnosis Musculoskeletal chest pain (1) Musculoskeletal chest pain Status: Acute (2) Elevated troponin Status: Resolved (3) T2DM (type 2 diabetes mellitus) Status: Acute Qualifiers: Qualified Codes: E11.65 - Type 2 diabetes mellitus with hyperglycemia Clinical Quality Measures DVT/VTE Risk/Contraindication: RFS Level Per Nursing on Admit: 1=Low/No VTE PPX UVALDO ARIAS MD Dec 01, 2019 09:39
== END 2019-11-30 13:01 | disposition home or self-care (01) ==
LOC: EDUNIT# 05:57 → ER 06:01 → UNDOADMIN 07:53 → 4TH 07:53 → UNDODISIN 13:45
PROVIDERS: ADMIT Internal Medicine; ATTEND Internal Medicine
DX: R07.89 Other chest pain (principal); E11.65 Type 2 diabetes mellitus with hyperglycemia; E66.9 Obesity, unspecified; R42 Dizziness and giddiness; Z68.35 Body mass index [BMI] 35.0-35.9, adult; Z82.49 Family history of ischemic heart disease and other diseases of the circulatory system; Z87.39 Personal history of other diseases of the musculoskeletal system and connective tissue
CPT/HCPCS: 36415; 71045; 80053; 82962; 83036; 83735; 83874; 84484; 85025; 85610; 85652; 85730; 93005; 93041; 93306; 93351; 96374; 96375; G0378

== ENCOUNTER → 2019-12-10 | Outpatient (CLI) | payer OTHER ==
[~2019-12-10] MED LIST changes: +METF-397 PO; +METF-399 PO
--- NOTE | 2019-12-10 17:40 | Diagnostic Imaging Report ---
CLINICAL INDICATION: Patient with chest pain. Patient has history of sternal fracture. EXAMS: Chest x-ray AP and lateral views. X-ray right rib series. COMPARISONS: X-ray of the sternum dated 12/10/2019. Chest x-ray dated 03/25/2019. FINDINGS: LUNGS/ PLEURA: Lungs are clear. There is no pneumothorax. There is no pleural effusion. MEDIASTINUM: Unremarkable. PULMONARY VASCULATURE: Unremarkable. HEART: Unremarkable. BONES/ EXTRATHORACIC SOFT TISSUE: Unremarkable. RIB SERIES: Unremarkable with no rib fracture or abnormality. IMPRESSION: 1: Unremarkable chest x-ray exam with no radiographic evidence of acute cardiopulmonary process. 2: There are no rib fractures. Dictated by: Dictated on workstation # [id number]
--- NOTE | 2019-12-10 17:41 | Diagnostic Imaging Report ---
CLINICAL INDICATION: Patient with chest pain and history of sternal fracture. EXAM: X-ray of the sternum, 2 views. COMPARISON: Chest x-ray 2 views dated 03/25/2019. FINDINGS AND IMPRESSION: There is appearance of bony irregularity involving the proximal sternum near the expected region of the manubrium seen on lateral view which may be related to history of sternal fracture versus joint irregularity. Correlation with prior imaging or CT scan would better evaluate. Dictated by: Dictated on workstation # [id number]
== END ==
LOC: RAD 16:50
PROVIDERS: ATTEND Nurse Practitioner Family
DX: R07.89 Other chest pain (principal); M94.0 Chondrocostal junction syndrome [Tietze]; S22.22 Fracture of body of sternum; R79.89 Other specified abnormal findings of blood chemistry; E11.9 Type 2 diabetes mellitus without complications
CPT/HCPCS: 36415; 71101; 71120; 84484

== ENCOUNTER → 2020-10-26 | Outpatient (CLI) | payer OTHER ==
[~2020-10-26] MED LIST changes: +RT-ALBUTEROL SULF 2.5 MG/3 ML PRE-MIX VIAL INH ONE
== END ==
LOC: RT 12:29
PROVIDERS: ATTEND Nurse Practitioner Family
DX: R05 Cough (principal); R06.02 Shortness of breath
CPT/HCPCS: 94060; 94726; 94729

== ENCOUNTER → 2020-11-29 | Outpatient (CLI) | payer OTHER ==
[~2020-11-29] MED LIST changes: -RT-ALBUTEROL SULF 2.5 MG/3 ML PRE-MIX VIAL INH ONE
--- NOTE | 2020-11-29 15:13 | Diagnostic Imaging Report ---
PROCEDURE: CT chest without contrast. TECHNIQUE: Multiple contiguous axial images were obtained through the chest without the use of intravenous contrast. Auto Exposure Controls were utilized during the CT exam to meet ALARA standards for radiation dose reduction. DATE: November 29, 2020. COMPARISON: Rib and chest radiographs December 10, 2019. CT chest, abdomen and pelvis August 19, 2017. INDICATION: 35-year-old male, cough. PROCEDURE: Axial noncontrasted CT images of the chest. Noncontrasted limits the evaluation of the mediastinum and vascular structures. FINDINGS: There is no identified pulmonary nodule. There is no lung mass. There is no focal airspace consolidation. There is no pneumothorax. There is no pleural effusion. The central airways are patent. The heart is not enlarged. There is no pericardial effusion. There is no identified abnormally enlarged mediastinal or axillary lymph node meeting CT size criteria for adenopathy. There is a small accessory splenule. Additional limited evaluation of the imaged portions of the upper abdomen is unremarkable. There is no identified acute bony abnormality. There are mild multilevel disc degenerative changes of the thoracic spine. IMPRESSION: 1. No identified acute cardiopulmonary abnormality. 2. Multilevel mild disc degenerative changes of the thoracic spine. Dictated by: Dictated on workstation # [id number]
== END ==
LOC: RAD 12:45
PROVIDERS: ATTEND Nurse Practitioner Family
DX: J44.9 Chronic obstructive pulmonary disease, unspecified (principal); M51.34 Other intervertebral disc degeneration, thoracic region
CPT/HCPCS: 71250

== ENCOUNTER 2021-01-02 08:36 | Outpatient (RCR) | payer OTHER ==
[~2021-01-02 08:36] MED LIST changes: -SULF1TAB35 PO
== END 2021-04-02 ==
LOC: PULM 08:36
PROVIDERS: ATTEND Nurse Practitioner Family
DX: R06.00 Dyspnea, unspecified (principal)

== ENCOUNTER → 2021-01-10 | Outpatient (CLI) | payer OTHER ==
[~2021-01-10] MED LIST changes: +CATHETER FLUSH 10 ML SYR IV PRN; +HOLD METFORMIN - RECEIVED CONTRAST 20 ML VIAL IV SCH; +IOHEXOL 350 MG/ML 100 ML (OMNIPAQUE 350) VIAL IV ONE; +NS 100 ML (IVPB) BAG IV ONE; +SULF1TAB35 PO
[2021-01-10 08:34] LABS: BASOPHILS # (AUTO) 0.1 10^3/uL (0.0-0.1); BASOPHILS % (AUTO) 1 % (0-10); EOSINOPHILS # (AUTO) 0.2 10^3/uL (0.0-0.3); EOSINOPHILS % (AUTO) 3 % (0-10); HEMATOCRIT 46 % (40-54); HEMOGLOBIN 15.4 g/dL (13.3-17.7); LYMPHOCYTES # (AUTO) 1.9 10^3/uL (1.0-4.0); LYMPHOCYTES % (AUTO) 30 % (12-44); MEAN CORPUSCULAR HEMOGLOBIN 30 pg (25-34); MEAN CORPUSCULAR HGB CONC 34 g/dL (32-36); MEAN CORPUSCULAR VOLUME 88 fL (80-99); MEAN PLATELET VOLUME 10.6 fL (9.0-12.2); MONOCYTES # (AUTO) 0.4 10^3/uL (0.0-1.0); MONOCYTES % (AUTO) 6 % (0-12); NEUTROPHILS # (AUTO) 3.7 10^3/uL (1.8-7.8); NEUTROPHILS % (AUTO) 60 % (42-75); PLATELET COUNT 272 10^3/uL (130-400); WHITE BLOOD COUNT 6.2 10^3/uL (4.3-11.0)
[2021-01-10 08:54] LABS: ALANINE AMINOTRANSFERASE 34 U/L (0-55); ALBUMIN 4.3 GM/DL (3.2-4.5); ALKALINE PHOSPHATASE 65 U/L (40-136); BILIRUBIN,TOTAL 0.5 MG/DL (0.1-1.0); BUN/CREATININE RATIO 13; CALCIUM 9.5 MG/DL (8.5-10.1); CARBON DIOXIDE 25 MMOL/L (21-32); CHLORIDE 105 MMOL/L (98-107); CREATININE SERUM 0.96 MG/DL (0.60-1.30); GFR ESTIMATED > 60; GLUCOSE 193 MG/DL (70-105); POTASSIUM 3.6 MMOL/L (3.6-5.0); SODIUM 138 MMOL/L (135-145); TOTAL PROTEIN 7.4 GM/DL (6.4-8.2)
--- NOTE | 2021-01-10 09:33 | Diagnostic Imaging Report ---
PROCEDURE: US Venous Lower Ext Donny. TECHNIQUE: Multiple real-time grayscale images were obtained over the lower extremities in various projections, bilaterally. Additional duplex Doppler and color Doppler images were also obtained. INDICATION: Lower extremity pain and edema. COMPARISON: None. FINDINGS: The bilateral common femoral vein, femoral vein, deep femoral vein, and popliteal vein are normal in appearance. These vessels show normal compressibility, color flow and doppler augmentation. The visualized deep calf veins demonstrate no distinct intraluminal thrombus. IMPRESSION: 1. No sonographic evidence of deep venous thrombosis in the bilateral lower extremities. Dictated by: Dictated on workstation # [id number]
--- NOTE | 2021-01-10 10:10 | Diagnostic Imaging Report ---
PROCEDURE: CT angiography of the chest with contrast. TECHNIQUE: Multiple contiguous axial images were obtained through the chest after uneventful bolus administration of intravenous contrast. 3D reconstructed CTA MIP acquisitions were also performed. Auto Exposure Controls were utilized during the CT exam to meet ALARA standards for radiation dose reduction. INDICATION: Shortness of breath. COMPARISON: Noncontrasted chest CT of 11/29/2020. FINDINGS: The pulmonary arterial branches are well opacified and widely patent. No filling defect. No PE. The thoracic aorta is patent and nonaneurysmal. There is no pleural or pericardial effusion. The lungs are clear. No mass or lymphadenopathy. No chest wall pathology. The visualized upper abdomen shows a fatty liver with no acute pathology. IMPRESSION: Negative for PE or other acute abnormalities. Dictated by: Dictated on workstation # [id number]
== END ==
LOC: RAD 08:00
PROVIDERS: ATTEND Nurse Practitioner Family
DX: Z03.89 Encounter for observation for other suspected diseases and conditions ruled out (principal); R06.02 Shortness of breath; R60.0 Localized edema
CPT/HCPCS: 36415; 71275; 80053; 82164; 85025; 93970

== ENCOUNTER 2021-02-28 15:00 | Outpatient (RCR) | payer OTHER ==
[~2021-02-28 15:00] MED LIST changes: -CATHETER FLUSH 10 ML SYR IV PRN; -HOLD METFORMIN - RECEIVED CONTRAST 20 ML VIAL IV SCH; -IOHEXOL 350 MG/ML 100 ML (OMNIPAQUE 350) VIAL IV ONE; -NS 100 ML (IVPB) BAG IV ONE
== END 2021-02-28 15:45 | disposition home or self-care (01) ==
PROVIDERS: ATTEND Nurse Practitioner Family
DX: J98.4 Other disorders of lung (principal)